=== PATIENT | male | born 1975 | race Caucasian/White ===

== ENCOUNTER 2017-02-04 20:46 | Observation (INO) | payer OTHER ==
[~2017-02-04] VITALS: Ht 185.4 cm; Wt 140.2 kg
[2017-02-04 21:30] LABS: HEMOGLOBIN 14.3 gm/dl (14.0-17.5); RED BLOOD COUNT 5.24 M/UL (4.20-5.50); WHITE BLOOD COUNT 7.6 K/UL (4.5-11.0)
[2017-02-04 21:50] LABS: BUN/CREATININE RATIO 14 (0-10)
[2017-02-05 04:27] LABS: HEMOGLOBIN 13.5 gm/dl (14.0-17.5); RED BLOOD COUNT 4.94 M/UL (4.20-5.50)
[2017-02-05 04:29] LABS: WHITE BLOOD COUNT 9.6 K/UL (4.5-11.0)
[2017-02-05 05:16] LABS: BUN/CREATININE RATIO 15 (0-10)
[2017-02-05] MEDS ORDERED: METOPROLOL TAR100 MG PO (09:36)
[2017-02-05] MEDS ORDERED: HYDROCHLOROTH12.5 MG PO (09:36)
[2017-02-05] MEDS ORDERED: TRAMADOL HCL50 MG PO (09:37)
[2017-02-05] MEDS ORDERED: ALPRAZOLAM0.5 MG PO (09:41)
[2017-02-05] MEDS ORDERED: ASPIRIN81 MG PO (19:40)
[2017-02-05] MEDS ORDERED: IMDUR ER TAB 3030 MG PO ×2 (22:11→22:15)
[2017-02-05] MEDS ORDERED: NITROSTAT0.4 MG SL (22:16)
[2017-02-05] MEDS ORDERED: CRESTOR10 MG PO (22:16)
== END 2017-02-05 23:02 | disposition home or self-care (01) ==
LOC: ER1 20:46 → M/S 22:50 → ZEROF 22:50 → ER1 22:50 → M/S 02-05 14:30 → ZEROF 02-05 14:43 → M/S 02-05 14:43
PROVIDERS: Family Medicine; Specialist/Technologist Athletic Trainer; ADMIT Internal Medicine
DX: R07.9 Chest pain, unspecified (principal); I10 Essential (primary) hypertension; E78.5 Hyperlipidemia, unspecified; R79.89 Other specified abnormal findings of blood chemistry; E66.01 Morbid (severe) obesity due to excess calories; I51.7 Cardiomegaly; F41.9 Anxiety disorder, unspecified; F17.210 Nicotine dependence, cigarettes, uncomplicated; Z82.49 Family history of ischemic heart disease and other diseases of the circulatory system; Z83.3 Family history of diabetes mellitus; Z79.82 Long term (current) use of aspirin; Z79.899 Other long term (current) drug therapy
CPT/HCPCS: ECHO; 36415; 71010; 78452; 80053; 80061; 82550; 82553; 83036; 83874; 84443; 84484; 85025; 93005; 93017; 93306; 99285; A9502; G0378